=== PATIENT | male | born 1985 | race Caucasian/White ===

== ENCOUNTER 2017-07-30 21:56 | Emergency (ER) | payer BC ==
[~2017-07-30] VITALS: Ht 177.8 cm; Wt 113.6 kg
[2017-07-30 21:59] VITALS: BP 164/97; TEMP 97.3
[2017-07-30] MEDS ORDERED: MOTRIN 200200 MG/TAB PO (22:42)
[2017-07-30 23:20] LABS: COLLECTION METHOD CLEAN CATCH
[2017-07-30 23:25] LABS: MUCOUS Present /lpf; PH 5 (5-8); SQUAMOUS EPITHELIAL 0-2 /hpf; URINE APPEARANCE Clear; URINE BACTERIA None Seen /hpf; URINE BILIRUBIN Negative (NEGATIVE); URINE BLOOD Negative (NEGATIVE); URINE COLOR Yellow; URINE GLUCOSE Negative (NEGATIVE); URINE KETONE Negative (NEGATIVE); URINE LEUKOCYTE ESTERASE Negative (NEGATIVE); URINE NITRATE Negative (NEGATIVE); URINE PROTEIN(semi-quant) Negative (NEGATIVE); URINE RBC 0-2 /hpf; URINE UROBILINOGEN >=4.0 mg/dL (NEGATIVE)
[2017-07-30 23:28] LABS: BASO # 0.1 (0.0-0.2); EOS # 0.2 (0.0-0.7); EOS % 2.8 % (0-4.0); GRAN # 4.1 (1.4-6.5); GRAN % 53.2 % (42.2-75.2); HEMOGLOBIN 15.4 g/dl (13.5-18.0); LYMPH # 2.6 (1.2-3.4); LYMPH % 33.8 % (20.0-51.0); MEAN CELL VOLUME 84 fl (80.0-100.0); MEAN CORPUSCULAR HEMOGLOBIN 30 pg (27.0-31.0); MEAN CORPUSCULAR HGB CONC 36 g/dl (33.0-37.0); MEAN PLATELET VOLUME 9.2 fl (7.4-10.4); MONO # 0.7 (0.1-0.6); MONO % 9.1 % (1.7-9.3); PLATELET COUNT 207 K/mm3 (130-400); RED BLOOD COUNT 5.13 M/mm3 (4.20-5.60); REDCELL DISTRIBUTION WIDTH-CV 12.9 % (11.5-14.5)
[2017-07-30 23:38] LABS: BILIRUBIN,TOTAL 0.6 mg/dL (0.0-1.0); CALCIUM 9.2 mg/dL (8.4-10.2); CREATININE, serum 1.1 mg/dL (0.66-1.25); POTASSIUM 3.6 mmol/L (3.4-5.0); TOTAL PROTEIN 6.9 gm/dL (6.4-8.2)
[2017-07-30] MEDS ORDERED: PRIL40 PO (23:50)
[2017-07-31 00:02] VITALS: PULSE 62
== END 2017-07-31 00:02 | disposition home or self-care (01) ==
LOC: COL.ER 21:56
PROVIDERS: Nurse Practitioner Primary Care
DX: K29.70 Gastritis, unspecified, without bleeding (principal)

== ENCOUNTER 2018-08-31 23:27 | Emergency (ER) | payer BC ==
[~2018-08-31] VITALS: Ht 177.8 cm; Wt 109.1 kg
[~2018-08-31 23:27] MED LIST: MOTRIN 200200 MG/TAB PO; PRIL40 PO
[2018-08-31 23:39] VITALS: TEMP 101
[2018-09-01 02:11] VITALS: BP 131/71; PULSE 74
== END 2018-09-01 02:11 | disposition home or self-care (01) ==
LOC: COL.ER 23:27
DX: S93.601A Unspecified sprain of right foot, initial encounter (principal); F32.9 Major depressive disorder, single episode, unspecified; Z88.0 Allergy status to penicillin; X50.0XXA Overexertion from strenuous movement or load, initial encounter; Y92.39 Other specified sports and athletic area as the place of occurrence of the external cause

== ENCOUNTER 2019-06-30 07:15 | Observation (INO) | payer BC ==
[2019-06-30] VITALS (8 sets, daily range): BP systolic 107–131; BP diastolic 53–69; PULSE 71–86; TEMP 98.6
[~2019-06-30] VITALS: Ht 177.8 cm; Wt 111.4 kg
[2019-06-30 07:51] LABS: BASO # 0.1 (0.0-0.2); BASO % 0.5 % (0.0-2.0); EOS # 0.1 (0.0-0.7); EOS % 0.5 % (0-4.0); GRAN # 8.2 (1.4-6.5); HEMATOCRIT 42.7 % (42.0-52.0); LYMPH # 1.8 (1.2-3.4); MEAN CELL VOLUME 85 fl (80.0-100.0); MEAN CORPUSCULAR HEMOGLOBIN 30 pg (27.0-31.0); MEAN CORPUSCULAR HGB CONC 35 g/dl (33.0-37.0); MEAN PLATELET VOLUME 9.1 fl (7.4-10.4); MONO # 0.8 (0.1-0.6); MONO % 7.7 % (1.7-9.3); PLATELET COUNT 194 K/mm3 (130-400); RED BLOOD COUNT 5.03 M/mm3 (4.20-5.60); REDCELL DISTRIBUTION WIDTH-CV 13.3 % (11.5-14.5)
[2019-06-30 08:08] LABS: COLLECTION METHOD CLEAN CATCH
[2019-06-30 08:09] LABS: ALBUMIN 4.8 gm/dL (3.5-5.0); C-REACTIVE PROTEIN 0.6 mg/dL (0.0-0.9); CALCIUM 9.6 mg/dL (8.4-10.2); CREATININE, serum 1.15 (0.66-1.25); POTASSIUM 3.9 mmol/L (3.4-5.0); TOTAL PROTEIN 8.1 gm/dL (6.4-8.2)
[2019-06-30 08:18] LABS: MUCOUS Present /lpf; PH 6 (5-8); SQUAMOUS EPITHELIAL None Seen /hpf; URINE APPEARANCE Clear; URINE BACTERIA None Seen /hpf; URINE BILIRUBIN Negative (NEGATIVE); URINE BLOOD Negative (NEGATIVE); URINE COLOR Yellow; URINE GLUCOSE Negative (NEGATIVE); URINE KETONE Negative (NEGATIVE); URINE LEUKOCYTE ESTERASE Negative (NEGATIVE); URINE NITRATE Negative (NEGATIVE); URINE PROTEIN(semi-quant) Negative (NEGATIVE); URINE RBC None Seen /hpf; URINE UROBILINOGEN Negative (NEGATIVE)
[2019-06-30] MEDS ORDERED: NORCO 325 MG-51 TAB PO (11:23)
--- NOTE | 2019-06-30 13:38 | NUR ---
Patient sleepy post op, but wake easy. Vss on room air. Lap site x3 edges well approximated. He has spoken to his , did attempt to call her post op, no answer. Iv to Int. ice water porvided, no nausea. Lunch tray ordered. Will monitor, plans to Dc this evening
--- NOTE | 2019-06-30 17:55 | NUR ---
Patient doing well. plans on discharging home after dinner. Pain manged with [place]. He has voided, vitals stable.
[2019-06-30] MEDS ORDERED: ZOFRAN 4MG T4 MG/TAB PO (18:27)
--- NOTE | 2019-06-30 19:15 | NUR ---
All discharge teaching given. Script for benton & randy sent with patient. We reviewed medication list & medication safety. We reviewed activty & diet. Incision care discussed. Int radha. Samy wheeled out with all belongings, his taking him home
== END 2019-06-30 19:16 | disposition home or self-care (01) ==
LOC: COL.ER 07:15 → SURG 09:23
PROVIDERS: Emergency Medicine; ADMIT Surgery
DX: K35.80 Unspecified acute appendicitis (principal); Z88.0 Allergy status to penicillin; K21.9 Gastro-esophageal reflux disease without esophagitis; Z79.899 Other long term (current) drug therapy
CPT/HCPCS: G0378; G0379; J0330; J1100; J1170; J1956; J2250; J2405; J2704; J3010; J7030; Q9967

== ENCOUNTER 2020-05-15 16:15 | Emergency (ER) | payer BC ==
[~2020-05-15] VITALS: Ht 177.8 cm; Wt 109.1 kg
[~2020-05-15 16:15] MED LIST changes: +NORCO 325 MG-51 TAB PO; +ZOFRAN 4MG T4 MG/TAB PO
[2020-05-15 16:22] VITALS: TEMP 97.3
[2020-05-15 16:45] LABS: BASO # 0.1 (0.0-0.2); BASO % 0.8 % (0.0-2.0); EOS # 0.1 (0.0-0.7); EOS % 1.6 % (0-4.0); GRAN # 4.8 (1.4-6.5); HEMATOCRIT 46.3 % (42.0-52.0); HEMOGLOBIN 15.9 g/dl (13.5-18.0); LYMPH # 2.8 (1.2-3.4); LYMPH % 32.8 % (20.0-51.0); MEAN CELL VOLUME 87 fl (80.0-100.0); MEAN CORPUSCULAR HEMOGLOBIN 30 pg (27.0-31.0); MEAN CORPUSCULAR HGB CONC 34 g/dl (33.0-37.0); MONO # 0.8 (0.1-0.6); MONO % 9.5 % (1.7-9.3); PLATELET COUNT 216 K/mm3 (130-400); RED BLOOD COUNT 5.32 M/mm3 (4.20-5.60); REDCELL DISTRIBUTION WIDTH-CV 13.1 % (11.5-14.5)
[2020-05-15 17:04] LABS: ALBUMIN 4.8 gm/dL (3.5-5.0); BILIRUBIN,TOTAL 1.1 mg/dL (0.0-1.0); C-REACTIVE PROTEIN 0.6 mg/dL (0.0-0.9); CALCIUM 9.6 mg/dL (8.4-10.2); CREATININE, serum 1.45 (0.66-1.25); POTASSIUM 3.8 mmol/L (3.4-5.0); TOTAL PROTEIN 8.2 gm/dL (6.4-8.2)
[2020-05-15 17:11] LABS: COLLECTION METHOD CLEAN CATCH
[2020-05-15 17:21] LABS: MUCOUS Present /lpf; PH 7 (5-8); SQUAMOUS EPITHELIAL 0-2 /hpf; URINE APPEARANCE Hazy; URINE BACTERIA None Seen /hpf; URINE BILIRUBIN Negative (NEGATIVE); URINE BLOOD 3+ (NEGATIVE); URINE COLOR Yellow; URINE GLUCOSE Negative (NEGATIVE); URINE KETONE Negative (NEGATIVE); URINE LEUKOCYTE ESTERASE Negative (NEGATIVE); URINE NITRATE Negative (NEGATIVE); URINE PROTEIN(semi-quant) 1+ (NEGATIVE); URINE RBC >50 /hpf; URINE UROBILINOGEN Negative (NEGATIVE)
[2020-05-15] MEDS ORDERED: NORCO 325 MG-51 TAB PO (18:24)
[2020-05-15] MEDS ORDERED: ZOFRAN ODT4 MG PO (18:24)
[2020-05-15 19:00] VITALS: BP 132/78; PULSE 91
== END 2020-05-15 19:00 | disposition home or self-care (01) ==
LOC: COL.ER 16:15
PROVIDERS: Physician Assistant
DX: N13.2 Hydronephrosis with renal and ureteral calculous obstruction (principal); Z90.89 Acquired absence of other organs; Z88.0 Allergy status to penicillin
CPT/HCPCS: J1170; J1885; J2405; J7030; Q9967

== ENCOUNTER 2023-03-27 05:24 | Day surgery (SDC) | payer OTHER ==
[2023-03-27] VITALS (7 sets, daily range): BP systolic 137–172; BP diastolic 82–97; PULSE 68–78; TEMP 97–97.7
[~2023-03-27] VITALS: Ht 177.8 cm; Wt 116.6 kg
[~2023-03-27 05:24] MED LIST changes: +ZOFRAN ODT4 MG PO
[2023-03-27] MEDS ORDERED: LIPITOR20 MG PO (05:58)
[2023-03-27] MEDS ORDERED: MINIPRESS 1M1 MG/CAP PO (05:59)
[2023-03-27] MEDS ORDERED: VOLTAREN 75 DR75 MG PO (05:59)
[2023-03-27] MEDS ORDERED: NEURONTIN100 MG/CAP PO (05:59)
[2023-03-27] MEDS ORDERED: PRINIVIL10 MG PO (06:00)
[2023-03-27] MEDS ORDERED: OZEMPIC1 MG/0.71 SQ (06:01)
[2023-03-27] MEDS ORDERED: Famotidine 20 MG TAB PO SCH (07:00)
[2023-03-27] MEDS ORDERED: NS 1,000 ML IV SCH (07:00)
[2023-03-27] MEDS ORDERED: Ondansetron 4 MG/2 ML VIAL ONE (07:05)
[2023-03-27] MEDS ORDERED: Lidocaine PF 2% (20 MG/ML) 5 ML VIAL ONE (07:05)
[2023-03-27] MEDS ORDERED: fentaNYL 50 MCG/ML 2 ML VIAL ONE (07:06)
[2023-03-27] MEDS ORDERED: Ondansetron 4 MG/2 ML VIAL IV PRN (08:15)
[2023-03-27] MEDS ORDERED: Morphine 4 MG/ML VIAL IV PRN ×2 (08:15→08:45)
[2023-03-27] MEDS ORDERED: NORCO 325 MG-51 TAB PO (08:40)
[2023-03-27] MEDS ORDERED: CEPHALEXIN500 M1 PO (08:40)
--- NOTE | 2023-03-27 08:40 | NUR ---
PATIENT RETURNED TO ROOM 2 VIA CART, ALERT AND ORIENTED X3. DENIES NAUSEA AND SHORTNESS OF BREATH. BREATHING REGULAR AND UNLABORED ON ROOM AIR. STATES HE HAS HAD A HEADACHE SINCE EARLY THIS MORNING BEFORE COMING TO THE HOSPITAL. AGREES TO TRY TYLENOL FOR HEADACHE. HANDOFF COMPLETED IN ROOM BY RICHARD BRASHER CRNA AND MAREK Metzger RN. SEE CHART FOR VITAL SIGNS. PER ANESTHESIA, OK WITH CURRENT BLOOD PRESSURE READING, NO FURTHER INTERVENTIONS REQUESTED. VISIBLE BERTO WRAPS TO BILATERAL WRISTS/HANDS. DRESSINGS ARE CLEAN, DRY AND INTACT. BILATERAL FINGERS CAPILLARY REFILL <3 SECONDS. SKIN WARM AND DRY. PATIENT ABLE TO WIGGLE FINGERS. DENIES PAIN IN EITHER ARM/WRIST/HAND. BILATERAL HANDS/WRISTS ELEVATED, ICE APPLIED. CALL LIGHT IN REACH. 0849: BLOOD SUGAR 127 PATIENT HAD ORANGE JUICE AND PUDDING. BOTH FOOD AND DRINK TOLERATED WELL. SEE EMAR FOR MEDICATION GIVEN FOR HEADACHE. SPOUSE, VINH, PRESENT IN ROOM.
[2023-03-27] MEDS ORDERED: Naloxone 0.4 MG/ML VIAL IV PRN (08:45)
[2023-03-27] MEDS ORDERED: oxyCODONE 5 MG TAB PO PRN ×2 (08:45)
[2023-03-27] MEDS ORDERED: Acetaminophen 500 MG TAB PO SCH (09:30)
--- NOTE | 2023-03-27 10:10 | NUR ---
1001: PATIENT DENIES SURGICAL PAIN AND STATES HEADACHE IS TOLERABLE. DENIES ADDITIONAL INTERVENTIONS. RIGHT AC IV REMOVED. GAUZE AND COBAN PLACED OVER SITE. 1002: DISCHARGE TEACHING COMPLETED WITH PRINTED EDUCATION AND INSTRUCTIONS SENT HOME WITH PATIENT AND SPOUSE. PATIENT AND SPOUSE VERBALIZED UNDERSTANDING OF TEACHING. 1005: PATIENT AMBULATED TO RESTROOM WITH STEADY GAIT AND VOIDED. 1010: PATIENT CHANGED INTO PERSONAL CLOTHING AND DISCHARGED HOME WITH SPOUSE, VINH, TRANSPORT.
[2023-03-27] MEDS ORDERED: Ibuprofen 800 MG TAB PO SCH (15:00)
== END 2023-03-27 10:10 | disposition home or self-care (01) ==
LOC: SDCO 05:24
DX: G56.03 Carpal tunnel syndrome, bilateral upper limbs (principal)
CPT/HCPCS: J0665; J0690; J2405; J2704; J3010; J7030